=== PATIENT | female | born 1995 | race Caucasian/White ===

== ENCOUNTER 2017-10-17 20:21 | Emergency (ER) | payer MEDICAID ==
--- OUTSIDE RECORDS SUMMARY | 2017-10-17 20:26 | XMS REPORT | Continuity of Care Document ---
:1995 Author Organization [facility] Support Name Relationship Address Phone AMRITA FRITZ mother [address] [place] [address] ELLI FRITZ father [address] [place] [address] Allergies and Intolerances No Known Allergies Medications No Known Medications Problems No Data in the system Procedures No data in the system Results Laboratory Results Order: CBC DIFF Specimen Source: Body Site : Legend: (G,H)=High, (GG,HH,CH,#H)=Above High Threshold, (#,L)=Low, (##,CL,#L, LL)=Below Low Threshold, (C,CC,CA,#A,A)=Abnormal LOINC Test Result Flag Range Units Date 6690-2 1WBC # Bld Auto 7.1 4.8-10.8 K/uL 09/19/2017 17:50 06602-8 1RBC # Bld 4.55 4.20-5.40 M/uL 09/19/2017 17:50 718-7 1Hgb Bld-mCnc 13.8 12.0-16.0 gm/dL 09/19/2017 17:50 4544-3 1Hct VFr Bld Auto 40.4 36.0-48.0 % 09/19/2017 17:50 787-2 1MCV RBC Auto 88.7 80.0-100.0 fL 09/19/2017 17:50 40938-9 1MCHC RBC-mCnc 34.3 30.0-36.5 % 09/19/2017 17:50 63849-5 1MCH RBC Qn 30.4 27.0-34.0 pg 09/19/2017 17:50 47420-8 1RDW RBC 11.5 11.0-15.0 % 09/19/2017 17:50 777-3 1Platelet # Bld Auto 242 130-450 K/uL 09/19/2017 17:50 20716-0 1PMV Bld Auto 7.1 6.0-12.0 fL 09/19/2017 17:50 751-8 1Neutrophils # Bld Auto 66 37-80 % 09/19/2017 17:50 48117-7 1Lymphocytes NFr Bld 28 10-50 % 09/19/2017 17:50 5905-5 1Monocytes NFr Bld Auto 5 0-12 % 09/19/2017 17:50 27422-1 1Eosinophil # Bld 1 <=8 % 09/19/2017 17:50 704-7 1Basophils # Bld Auto 1 <=3 % 09/19/2017 17:50 27288-0 1Neutrophils # Bld 4.7 1.8-8.6 K/uL 09/19/2017 17:50 731-0 1Lymphocytes # Bld Auto 2.0 0.5-5.0 K/uL 09/19/2017 17:50 742-7 1Monocytes # Bld Auto 0.3 0.0-1.3 K/uL 09/19/2017 17:50 23374-5 1Eosinophil # Bld 0.0 0.0-0.9 K/uL 09/19/2017 17:50 704-7 1Basophils # Bld Auto 0.0 0.0-0.3 K/ul 09/19/2017 17:50 Performing Lab Footnotes:[facility] - [id number] - [address] [place] [address] RICHARD Raygoza [id number] Order: CK Specimen Source: Body Site: Legend: (G,H)=High, (GG,HH,CH,#H) =Above High Threshold, (#,L)=Low, (##,CL,#L,LL)=Below Low Threshold, (C,CC,CA,#A ,A)=Abnormal LOINC Test Result Flag Range Units Date 2157-6 1CK SerPl-cCnc 91 21-215 U/L 09/19/2017 17:50 Performing Lab Footnotes:[facility] - [id number] - [address] [place] [address] RICHARD ALICEA Order: COMPREHENSIVE PANEL Specimen Source: Body Site: Legend: (G,H)= High, (GG,HH,CH,#H)=Above High Threshold, (#,L)=Low, (##,CL,#L,LL)=Below Low Threshold, (C,CC,CA,#A,A)=Abnormal LOINC Test Result Flag Range Units Date 2951-2 1Sodium SerPl-sCnc 139 136-145 mmol/L 09/19/2017 17:50 2823-3 1Potassium SerPl-sCnc 4.0 3.5-5.2 mmol/L 09/19/2017 17:50 5-0 1Chloride SerPl-sCnc 108 100-108 mmol/L 09/19/2017 17:50 8-9 1CO2 SerPl-sCnc 23 21-32 mmol/L 09/19/2017 17:50 2345-7 1Glucose SerPl-mCnc 88 70-100 mg/dL 09/19/2017 17:50 3094-0 1BUN SerPl-mCnc 7 7-21 mg/dL 09/19/2017 17:50 2160-0 1Creat SerPl-mCnc 0.7 0.6-1.3 mg/dL 09/19/2017 17:50 Interpretive Sydnee: 1Normal Kidney Function or Mild Disease - GFR >OR=60 Chronic Kidney Disease - GFR 15-59 Renal Failure - GFR < 15 GFR not calculated on patients under 18 years of age. Calculated (estimated) GFR is based on the MDRD Study equation, which assumes a steady state for creatinine. Estimated GFR may not be appropriate for medication dosing. 34495-4 1Ca-I SerPl-mCnc 9.1 8.5-10.8 mg/dL 09/19/2017 17:50 61484-8 1GFR/BSA.pred SerPl-ArVRat >60 09/19/2017 17:50 14269-3 1Bilirub Bld-mCnc 0.5 0.0-1.2 mg/dL 09/19/2017 17:50 2885-2 1Prot SerPl-mCnc 6.9 6.4-8.2 gm/dL 09/19/2017 17:50 1751-7 1Albumin SerPl-mCnc 4.0 3.4-4.8 gm/dL 09/19/2017 17:50 6768-6 1ALP SerPl-cCnc 51 40-150 U/L 09/19/2017 17:50 1742-6 1ALT SerPl-cCnc 15 0-55 U/L 09/19/2017 17:50 1920-8 1AST SerPl-cCnc 21 5-37 U/L 09/19/2017 17:50 Performing Lab Footnotes:[facility] - [id number] - [address] [place] [address] MOHAN DEANNE Order: MAGNESIUM Specimen Source: Body Site: Legend: (G,H)=High, (GG,HH ,CH,#H)=Above High Threshold, (#,L)=Low, (##,CL,#L,LL)=Below Low Threshold, (C, CC,CA,#A,A)=Abnormal LOINC Test Result Flag Range Units Date 04941-4 1Magnesium SerPl-mCnc 2.1 1.7-2.6 mg/dL 09/19/2017 17:50 Performing Lab Footnotes:[facility] - [id number] - [address] [place] [address] RICHARD MANNOMD1 Order: MONO - INFECT MONO TEST Specimen Source: Body Site: Legend: (G,H )=High, (GG,HH,CH,#H)=Above High Threshold, (#,L)=Low, (##,CL,#L,LL)=Below Low Threshold, (C,CC,CA,#A,A)=Abnormal LOINC Test Result Flag Range Units Date 30097-0 1Heteroph Ab Ser Ql NEGATIVE NEGATIVE 09/19/2017 17:50 1Methodology: Latex Agglutination Performing Lab Footnotes:[facility] - [id number] - [address] [place] [address] RICHARD MANNOMD1 Order: THYROID PROFILE (T3u+T4+TSH) Specimen Source: Body Site: Legend : (G,H)=High, (GG,HH,CH,#H)=Above High Threshold, (#,L)=Low, (##,CL,#L,LL)= Below Low Threshold, (C,CC,CA,#A,A)=Abnormal LOINC Test Result Flag Range Units Date 3016-3 1TSH SerPl-aCnc 0.67 0.34-4.82 uIU/mL 09/19/2017 17:50 3026-2 1T4 SerPl-mCnc 8.1 4.7-13.0 ug/dL 09/19/2017 17:50 3055-1 1T3/T3 uptake index 1.10 0.69-1.41 TBI 09/19/2017 17:50 SerPl-Rto Performing Lab Footnotes:[facility] - [id number] - [address] [place] [address] RICHARD ALICEA Social History Code Code System Social History Observation Description Dates Observed 881675141 SNOMED CT Current Smoking Status Never smoker UNK AdministrativeGender Sex Assigned At Unknown Vital Signs Code Code System Vitals Value Date 8865-8 LOINC Pulse Rate 42 {beats}/min 09/19/2017 9279-1 LOINC Respiratory Rate 16 /min 09/19/2017 8480-6 LOINC BP Systolic 119 mm[Hg] 09/19/2017 8462-4 LOINC BP Diastolic 78 mm[Hg] 09/19/2017 8310-5 LOINC Body Temperature 96.6 [degF] 09/19/2017 23535-0 LOINC O2% BldC Oximetry 100 % 09/19/2017 8302-2 LOINC Height 66 [in_i] 09/19/2017 71540-4 LOINC Weight 68.18 kg 09/19/2017 3140-1 LOINC Body surface area Derived from formula 1.77 m2 09/19/2017 83059-1 LOINC BMI (Body Mass Index) 24.4 kg/m2 09/19/2017 Goals Section No data in the system Health Concerns No data in the systemEncounter Diagnosis Date Code Code System Diagnosis Status G44.209 ICD10 TENSION-TYP HEADACHE UNS NOT INTRCT Active Advance Directives PT STATES NO ADVANCE DIRECTIVES Directive Type Effective Date Kitchen Stewardess Notes Supporting Document Name Address Phone No Directive Type 09/19/2017 4:56:00 Not Specified Not Specified Not Specified None No specified PM Family History No data in the system Functional Status Code Functional Condition Code System Date Status Independent adls SNOMED CT 09/19/2017 Active Appears well nourished/hydrated SNOMED CT 09/19/2017 Active Immunizations No data in the system Medical Equipment No data in the system Mental Status Code Cognitive Condition Code System Date Status Perrl SNOMED CT 09/19/2017 Active Oriented x [address] 09/19/2017 Active Mild distress SNOMED CT 09/19/[address] 09/19/2017 Active Assessment and Plan Assessments No data in the systemPlan Of Treatment No data in the systemPending Tests Test Start Date Point of Care /URINE 09/19/2017 Point of Care URINE DIPSTICK 09/19/2017 Hospital Discharge Instructions No data in the system Reason for Visit Reason for Visit Illness
--- OUTSIDE RECORDS SUMMARY | 2017-10-17 20:26 | XMS REPORT ---
:1995 External Reference #:[id number] Author Organization [facility], Address [address] [place] [id number] Phone [phone] Care Team Providers Name Role Phone Andrea Mcintyre DO Primary Care Physician Unavailable Payers Type Date Identification Numbers Payment Provider Subscriber Commercial Policy Number: [id number] [facility] Medicaid Vivien Bangura PayID: [id number] [address] [place] [address] Medicaid Policy Number: [id number] Medicaid [place] Vivien Bangura PayID: [id number] [address] [place] [address] Problems Description No Information Social History Type Date Description Comments ETOH Use Occasionally consumes alcohol Smoking Patient has never smoked Allergies, Adverse Reactions, Alerts Date Description Reaction Status Severity Comments 10/02/2017 NKDA active Medications Medication Date Status Form Strength Qnty SIG Indications Ordering Provider Wellbutrin SR Active Tablets ER 150mg 30tabs one F41.1 Andrea 018 12HR tablet by maurilio Mcintyre DO daily Hydroxyzine Active Capsules 50mg 1 tab Unknown Pamoate 000 twice a day as needed anxiety Ortho Active Tablets 0.18/0.215 1 by Unknown Tri-Cyclen 000 /0.25 mouth (28) mg-35 mcg every day Vital Signs Date Vital Result Comment 10/02/2017 Weight 152.25 lb Weight in kg's 69.061 BMI (Body Mass Index) 24.9 kg/m2 BP Systolic 110 mmHg BP Diastolic 72 mmHg Heart Rate 67 /min Respiratory Rate 18 /min Height 65.5 inches 5'5.50" Height in cm's 166.4 cm O2 % BldC Oximetry 100 % Results Description No Information Procedures Description No Information Plan of Care Future Appointment(s):10/30/2017 4:00 pm - Andrea Mcintyre DO at [facility]10/12/2017 - Quang BernardComments:Vivien is no longer a patient of Dr. Mcintyre'daniella. She came here because she needed help and he was available. She has returned to the care of her primary doctor. Vivien would like to continue coming for counseling, but I will have to discuss this with a research greenhouse supervisor first. Otherwise, I will work on getting her referred elsewhere.
[2017-10-17 20:33] VITALS: BP 145/85
--- NOTE | 2017-10-17 21:25 | UC ---
General HPI - HPI Summary HPI Summary: Patient c/o symptoms since August of pounding heart beat, migrating tingling sensations on neck, jaw, arms and back of head/neck, sensation of tremor on back of head and anxiety. Was diagnosed with early Lyme disease, presence of IgM on blood work 10-07-17, started doxycycline 100mg bid on 10-14-17. Patient states she still has these sensations. She has been going to the ER several times since August and EKGs have shown once a junctional rhythm, reverting to NSR/sinus bradycardia. 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 She states she cannot sleep due to these sensations. Denies SOB, wheezing, arthralgias. She denies pedal edema though she has been using compressive stockings due to this problem in the summer. She has a cardiology appt on November 18, 2017 - History of Current Complaint Chief Complaint: UCGeneralIllness Stated Complaint: PAIN IN THE BACK OF HEAD, NUMBNESS (ARM) Time Seen by Provider: 10/17/17 20:38 Hx Obtained From: Patient Hx Last Menstrual Period: 3 wks ago Onset/Duration: Sudden Onset, Lasting Weeks Timing: Constant Onset Severity: Moderate Current Severity: Mild Pain Intensity: 0 Associated Signs & Symptoms: Positive: Agitation, Palpitations - Allergy/Home Medications Allergies/Adverse Reactions: Allergies Allergy/AdvReac Type Severity Reaction Status Date / Time No Known Allergies Allergy Verified 10/17/17 20:33 Home Medications: Home Medications DOXYcycline CAP(*) [DOXYcycline 100MG CAP(*)] 100 mg PO DAILY 10/17/17 [History Confirmed 10/17/17] PMH/Surg Hx/FS Hx/Imm Hx Previously Healthy: Yes - Surgical History Surgical History: None - Social History Alcohol Use: Rare Substance Use Type: None Smoking Status (MU): Never Smoked Tobacco Review of Systems Constitutional: Negative Cardiovascular: Palpitations Neurological: Paresthesia All Other Systems Reviewed And Are Negative: Yes Physical Exam Triage Information Reviewed: Yes Appearance: Well-Appearing, Well-Nourished Vital Signs: Initial Vital Signs Temp 98.7 F 10/17/17 20:27 Pulse 60 10/17/17 20:27 Resp 18 10/17/17 20:27 BP 145/85 10/17/17 20:27 Pulse Ox 100 10/17/17 20:27 Vital Signs Reviewed: Yes Eyes: Positive: Conjunctiva Clear ENT: Positive: Pharynx normal, Nasal congestion, TMs normal, Uvula midline Neck: Positive: Supple, Nontender, No Lymphadenopathy Respiratory: Positive: Chest non-tender, Lungs clear, Normal breath sounds, No respiratory distress Cardiovascular: Positive: RRR, No Murmur, Pulses Normal, Brisk Capillary Refill Abdomen Description: Positive: Nontender, No Organomegaly, Soft Bowel Sounds: Positive: Present Neurological Exam: Normal Neurological: Positive: Other: - CN II-XII wnl, sensory intact, strength symmetrical, no ataxia, gait wnl. Course/Dx - Course Course Of Treatment: f/u with outside cutter hand, continue with doxycycline, start neurontin for paresthesias, referral to infectious disease - Differential Dx - Multi-Symptom Provider Diagnoses: Early Lyme's disease. Paresthesias. Palpitations Discharge - Sign-Out/Discharge Documenting (check all that apply): Discharge - Discharge Plan Condition: Stable Disposition: HOME Prescriptions: Gabapentin CAP(*) [Neurontin 100 mg CAP(*)] 300 mg PO BEDTIME #90 cap Patient Education Materials: Lyme Disease (ED), Paresthesia (ED) Referrals: Dariana DAVILA,Thomas Morgan [Primary Care Provider] - Ronal LAZO,Sharan Sams [Medical Doctor] - - Billing Disposition and Condition Condition: STABLE Disposition: HOME
== END 2017-10-17 21:10 | disposition home or self-care (01) ==
LOC: UCEAST 20:21
DX: A69.20 Lyme disease, unspecified (principal); R20.2 Paresthesia of skin; R00.2 Palpitations
CPT/HCPCS: 99212; G0463